=== PATIENT | male | born 1975 ===

== ENCOUNTER 2018-03-22 19:06 | Emergency (ER) | payer BC ==
[2018-03-22 19:31] VITALS: BP 122/85; PULSE 81; RESP 14; TEMP 97.7; O2SAT 99
--- NOTE | 2018-03-22 20:30 | C.PDOC ---
History Of Present Illness 42 y/o male presents to the ER complaining of sore throat which has been present for the past 4 days. Patient states that he has "weird sensation" in his throat. Patient reports that he has pain with swallowing food. Denies having fever, chills, cough, nausea, and vomiting. Time Seen by Provider: 03/22/18 19:20 Chief Complaint (Nursing): ENT Problem History Per: Patient History/Exam Limitations: None Onset/Duration Of Symptoms: Days Current Symptoms Are (Timing): Still Present Severity: Moderate Past Medical History Reviewed: Historical Data, Nursing Documentation, Vital Signs Vital Signs: Last Vital Signs Temp 97.7 F 03/22/18 19:29 Pulse 81 03/22/18 19:29 Resp 14 03/22/18 19:29 BP 122/85 03/22/18 19:29 Pulse Ox 99 03/22/18 19:29 - Medical History PMH: No Chronic Diseases Surgical History: No Surg Hx Family History: States: No Known Family Hx - Social History Hx Tobacco Use: Yes (heavy smoker) Hx Alcohol Use: No Hx Substance Use: Yes (marijuana) - Immunization History Hx Tetanus Toxoid Vaccination: No Hx Influenza Vaccination: No Review Of Systems Constitutional: Negative for: Fever, Chills, Weakness Eyes: Negative for: Redness ENT: Positive for: Throat Pain. Negative for: Ear Discharge, Nose Pain, Nose Discharge, Throat Swelling Cardiovascular: Negative for: Chest Pain Respiratory: Negative for: Cough, Shortness of Breath Genitourinary: Negative for: Dysuria Musculoskeletal: Negative for: Back Pain Skin: Negative for: Rash Physical Exam - Physical Exam Appears: Non-toxic, No Acute Distress, Other (no muffled voice) Skin: Normal Color, Warm, Dry Head: Atraumatic, Normacephalic Eye(s): bilateral: Normal Inspection Nose: Normal Oral Mucosa: Moist Throat: Normal (no swelling or injection), No Erythema, No Exudate, Other (airway patent) Neck: Supple Chest: Symmetrical Cardiovascular: Rhythm Regular Respiratory: Normal Breath Sounds, No Rales, No Rhonchi, No Wheezing, Other (normal inspiratory effort) Neurological/Psych: Oriented x3, Normal Speech ED Course And Treatment O2 Sat by Pulse Oximetry: 99 (RA) Pulse Ox Interpretation: Normal Medical Decision Making Medical Decision Making: Plan: --Rapid Strep Test --Throat Culture Disposition Counseled Patient/Family Regarding: Studies Performed, Diagnosis, Need For Followup - Disposition Disposition: HOME/ ROUTINE Disposition Time: 20:29 Condition: STABLE Additional Instructions: Patient advised to take ibuprofen 800mg po 3 times a day for painful swallowing. Instructions: Viral Pharyngitis Forms: [facility] ([place]), Work Excuse - Clinical Impression Clinical Impression: Pharyngitis - PA / [employer] / Resident Statement MD/DO has reviewed & agrees with the documentation as recorded. - Scribe Statement The provider has reviewed the documentation as recorded by the Marty Haq Provider Attestation All medical record entries made by the Marty were at my direction and personally dictated by me. I have reviewed the chart and agree that the record accurately reflects my personal performance of the history, physical exam, medical decision making, and the department course for this patient. I have also personally directed, reviewed, and agree with the discharge instructions and disposition.
== END 2018-03-22 20:36 | disposition home or self-care (01) ==
LOC: C.ER 19:06
DX: J02.9 Acute pharyngitis, unspecified (principal)